=== PATIENT | male | born 1940 | race Two or more races ===

== ENCOUNTER 2016-06-03 19:18 | Inpatient (IN) | payer OTHER, MEDICARE ==
[~2016-06-03] VITALS: Ht 165.1 cm; Wt 92.1 kg
[2016-06-03] MEDS ORDERED: ALBUTEROL FS 2.5 MG/3 ML VIAL.NEB NEB ONE (19:30)
[2016-06-03] MEDS ORDERED: AZITHROMYCIN 500 MG in IV D5W 250 ML IV ONE (19:30)
[2016-06-03] MEDS ORDERED: methylPREDNISolone SOD SUCC 125 MG/2ML VIAL IV ONE (19:30)
[2016-06-03] MEDS ORDERED: CEFTRIAXONE 1GM BAG (ER ONLY) 1 GM/50 ML PIGGYBACK IV ONE (19:30)
[2016-06-03] MEDS ORDERED: IPRATROPIUM NEB FS 0.5 MG/2.5 ML AMPUL.NEB NEB ONE (19:30)
[2016-06-03] MEDS ORDERED: methylPREDNISolone SOD SUCC 125 MG/2ML VIAL ONE ×2 (19:34→23:53)
[2016-06-03] MEDS ORDERED: CEFTRIAXONE 1GM BAG (ER ONLY) 50 ML IV ONE (19:34)
[2016-06-03] MEDS ORDERED: IV SET PRIMARY 1 EA INFUS.SET MC ONE (19:34)
[2016-06-03] MEDS ORDERED: IPRATROPIUM NEB FS 0.5 MG/2.5 ML AMPUL.NEB ONE (19:38)
[2016-06-03] MEDS ORDERED: ALBUTEROL FS 2.5 MG/3 ML VIAL.NEB ONE (19:38)
[2016-06-03 19:42] LABS: BASOPHILS # (AUTO) 0.1 /CMM (0.0-0.2); BASOPHILS % (AUTO) 1.2 % (0.0-2.0); DIFF TOTAL % 100 %; EOSINOPHILS # (AUTO) 0.2 /CMM (0.0-0.7); EOSINOPHILS % (AUTO) 2.8 % (0.0-6.0); HEMATOCRIT 42 % (39-51); HEMOGLOBIN 13.8 g/dL (13.5-17.5); LYMPHOCYTES # (AUTO) 2.5 /CMM (0.8-4.8); LYMPHOCYTES % (AUTO) 29.9 % (20.0-44.0); MEAN CORPUSCULAR HEMOGLOBIN 31 PG (26.0-33.0); MEAN CORPUSCULAR HGB CONC 33 g/dl (31.0-36.0); MEAN CORPUSCULAR VOLUME 93 fL (80-96); MONOCYTES # (AUTO) 0.8 /CMM (0.1-1.30); MONOCYTES % (AUTO) 9.5 % (2.0-12.0); NEUTROPHILS # (AUTO) 4.9 /CMM (1.8-8.9); NEUTROPHILS % (AUTO) 56.6 % (43.0-81.0); PLATELET COUNT (AUTO) 313 /CMM (150-450); RED BLOOD CELL COUNT(AUTO) 4.51 MIL/uL (4.5-6.0); WHITE BLOOD COUNT (AUTO) 8.5 K/uL (4.3-11.0)
[2016-06-03 19:54] LABS: ANION GAP 16 (5-14); CALCIUM, SERUM 9.3 mg/dL (8.5-10.1); CARBON DIOXIDE 25 mmol/L (21-32); CHLORIDE 104 mmol/L (98-107); CREATININE 1.7 mg/dL (0.6-1.3); GLUCOSE 158 mg/dL (74-106); POTASSIUM 4.8 mmol/L (3.5-5.1); SODIUM SERUM 140 mmol/L (136-145); UREA NITROGEN, BLOOD 15 mg/dL (7-18)
[2016-06-03 20:13] LABS: ALANINE AMINOTRANSFERASE 36 U/L (12-78); ALBUMIN 3.8 g/dL (3.4-5.0); ASPARTATE AMINOTRANSFERASE 29 U/L (15-37); BILIRUBIN,DIRECT 0.1 mg/dL (0.0-0.2); BILIRUBIN,TOTAL 0.4 mg/dL (0.2-1.0); INDIRECT BILIRUBIN 0.3 mg/dL (0.0-1.1); TOTAL PROTEIN, SERUM 7.5 g/dL (6.4-8.2)
[2016-06-03] MEDS ORDERED: IV D5W 250 ML IV ONE ×2 (20:18→23:54)
[2016-06-03] MEDS ORDERED: IV SET PRIMARY PUMP SET 1 EA INFUS.SET MC ONE ×2 (20:18→23:42)
[2016-06-03] MEDS ORDERED: AZITHROMYCIN 500 MG VIAL ONE (20:18)
[2016-06-03 20:19] LABS: LACTIC ACID 2.2 mmol/L (0.4-2.0); TROPONIN I 0.047 ng/mL (0.00-0.056)
[2016-06-03 20:37] LABS: *LACTIC ACID REFLEX FLAG YES
[2016-06-03] MEDS: IPRATROPIUM NEB FS 0.5 MG/2.5 ML AMPUL.NEB NEB SCH (22:30)
[2016-06-03] MEDS ORDERED: ONDANSETRON HCL/PF 4 MG/2 ML VIAL IVP PRN (22:30)
[2016-06-03] MEDS ORDERED: LORAZEPAM INJ 2 MG/ML VIAL IVP PRN (22:30)
[2016-06-03] MEDS ORDERED: IV NS 0.9% 1,000 ML BAG IV ONE (22:30)
[2016-06-03] MEDS ORDERED: VANCOMYCIN 1 GM in IV D5W 250 ML IV ONE (22:30)
[2016-06-03] MEDS ORDERED: MORPHINE SULFATE INJ 2 MG/ML DISP.SYRIN IV PRN (22:30)
[2016-06-03] MEDS: ALBUTEROL FS 2.5 MG/0.5 ML VIAL.NEB NEB SCH (22:30)
[2016-06-03] MEDS ORDERED: ACETAMINOPHEN 325 MG TABLET PO PRN ×2 (22:30)
[2016-06-03 23:30] VITALS: BP 120/71
[2016-06-03] MEDS ORDERED: IV NS 0.9% 1,000 ML ONE (23:42)
[2016-06-03] MEDS ORDERED: VANCOMYCIN 1 GM VIAL ONE (23:53)
[2016-06-04 00:01] LABS: ALBUMIN 3.7 g/dL (3.4-5.0); BILIRUBIN,DIRECT 0.1 mg/dL (0.0-0.2); BILIRUBIN,TOTAL 0.3 mg/dL (0.2-1.0); INDIRECT BILIRUBIN 0.2 mg/dL (0.0-1.1); TOTAL PROTEIN, SERUM 7.5 g/dL (6.4-8.2)
[2016-06-04] MEDS ORDERED: ASPI81TA2 PO (00:20)
[2016-06-04] MEDS ORDERED: AMIO100T4 PO (00:20)
[2016-06-04] MEDS ORDERED: METO1TAB38 PO (00:20)
[2016-06-04] MEDS ORDERED: LOSA25TA13 PO (00:20)
[2016-06-04] MEDS ORDERED: FURO-145 PO (00:20)
[2016-06-04] MEDS ORDERED: GUAIFENESIN LA 600 MG TABLET.SA PO ONE (00:32)
[2016-06-04] MEDS: GUAIFENESIN LA 600 MG TABLET.SA PO SCH ×3 (00:39→21:28)
[2016-06-04] MEDS: methylPREDNISolone SOD SUCC 125 MG/2ML VIAL IV SCH ×4 (01:08→17:36)
[2016-06-04] MEDS ORDERED: PIPERACILLIN /TAZOBACTAM 3.375 G VIAL IV ONE ×2 (01:14→05:45)
[2016-06-04] MEDS ORDERED: IV D5W 50 ML IV ONE ×2 (01:14→05:46)
[2016-06-04] MEDS ORDERED: SECONDARY IV SET 1 EA INFUS.SET MC ONE (01:27)
[2016-06-04 04:03] VITALS: BP 108/55
[2016-06-04] MEDS: PIPERACILLIN /TAZOBACTAM 3.375 G in IV D5W 50 ML IV SCH ×4 (05:58→12:28)
[2016-06-04 07:05] VITALS: BP 120/62
[2016-06-04 07:32] LABS: BASOPHILS % (AUTO) 0.1 % (0.0-2.0); DIFF TOTAL % 100 %; HEMATOCRIT 39 % (39-51); HEMOGLOBIN 13.1 g/dL (13.5-17.5); LYMPHOCYTES # (AUTO) 0.8 /CMM (0.8-4.8); LYMPHOCYTES % (AUTO) 7.5 % (20.0-44.0); MEAN CORPUSCULAR HEMOGLOBIN 32 PG (26.0-33.0); MEAN CORPUSCULAR HGB CONC 33 g/dl (31.0-36.0); MEAN CORPUSCULAR VOLUME 94 fL (80-96); MONOCYTES % (AUTO) 0.3 % (2.0-12.0); NEUTROPHILS # (AUTO) 9.9 /CMM (1.8-8.9); NEUTROPHILS % (AUTO) 92.1 % (43.0-81.0); PLATELET COUNT (AUTO) 289 /CMM (150-450); RED BLOOD CELL COUNT(AUTO) 4.17 MIL/uL (4.5-6.0); WHITE BLOOD COUNT (AUTO) 10.7 K/uL (4.3-11.0)
[2016-06-04 08:00] VITALS: BP 124/62
[2016-06-04 08:04] LABS: ALBUMIN 3.4 g/dL (3.4-5.0); BILIRUBIN,TOTAL 0.5 mg/dL (0.2-1.0); CALCIUM, SERUM 8.8 mg/dL (8.5-10.1); PHOSPHORUS 2.4 mg/dL (2.5-4.9); POTASSIUM 5.5 mmol/L (3.5-5.1)
[2016-06-04] MEDS: PANTOPRAZOLE 40 MG TABLET.DR PO SCH (09:13)
[2016-06-04] MEDS: ALBUTEROL FS 2.5 MG/0.5 ML VIAL.NEB NEB SCH ×3 (09:17→19:14)
[2016-06-04] MEDS: IPRATROPIUM NEB FS 0.5 MG/2.5 ML AMPUL.NEB NEB SCH ×3 (09:18→19:15)
[2016-06-04] MEDS ORDERED: FEE PK DOSING 1 MIN EA MC ONE (09:42)
[2016-06-04] MEDS ORDERED: SODIUM POLYSTYRENE SULFONATE 15 G/60 ML BOTTLE PO ONE (12:00)
[2016-06-04] MEDS ORDERED: BUMETANIDE INJ 4 MG in IV NS 0.9% 24 ML IV ONE (15:00)
[2016-06-04 16:00] VITALS: BP 122/68
[2016-06-04] MEDS ORDERED: K PHOS NEUTRAL 250 MG TABLET PO ONE (16:00)
[2016-06-04] MEDS ORDERED: VANCOMYCIN 1 GM in IV D5W 250 ML IV SCH (18:00)
[2016-06-04 20:00] VITALS: BP 129/67
[2016-06-05] MEDS: IPRATROPIUM NEB FS 0.5 MG/2.5 ML AMPUL.NEB NEB SCH ×4 (01:13→20:33)
[2016-06-05] MEDS: ALBUTEROL FS 2.5 MG/0.5 ML VIAL.NEB NEB SCH ×4 (01:13→20:33)
[2016-06-05 06:50] LABS: BASOPHILS % (AUTO) 0.1 % (0.0-2.0); DIFF TOTAL % 100 %; HEMATOCRIT 35 % (39-51); HEMOGLOBIN 11.6 g/dL (13.5-17.5); LYMPHOCYTES % (AUTO) 5.5 % (20.0-44.0); MEAN CORPUSCULAR HEMOGLOBIN 31 PG (26.0-33.0); MEAN CORPUSCULAR HGB CONC 33 g/dl (31.0-36.0); MEAN CORPUSCULAR VOLUME 94 fL (80-96); MONOCYTES # (AUTO) 0.7 /CMM (0.1-1.30); MONOCYTES % (AUTO) 3.6 % (2.0-12.0); NEUTROPHILS # (AUTO) 16.7 /CMM (1.8-8.9); NEUTROPHILS % (AUTO) 90.8 % (43.0-81.0); PLATELET COUNT (AUTO) 298 /CMM (150-450); RED BLOOD CELL COUNT(AUTO) 3.71 MIL/uL (4.5-6.0); WHITE BLOOD COUNT (AUTO) 18.4 K/uL (4.3-11.0)
[2016-06-05 06:55] LABS: CALCIUM, SERUM 8.6 mg/dL (8.5-10.1); CREATININE 1.8 mg/dL (0.6-1.3); PHOSPHORUS 4.1 mg/dL (2.5-4.9); POTASSIUM 4.5 mmol/L (3.5-5.1)
[2016-06-05 07:28] LABS: CREATINE KINASE MB 2.9 ng/mL (0-3.6)
[2016-06-05 07:35] LABS: LACTIC ACID 2.7 mmol/L (0.4-2.0)
[2016-06-05 07:36] LABS: *LACTIC ACID REFLEX FLAG YES
[2016-06-05 08:00] VITALS: BP_SYST 117; BP_SYST 120; BP_DIAS 70; BP_DIAS 72
[2016-06-05] MEDS: methylPREDNISolone SOD SUCC 125 MG/2ML VIAL IV SCH ×3 (08:09→16:16)
[2016-06-05] MEDS: PANTOPRAZOLE 40 MG TABLET.DR PO SCH (08:10)
[2016-06-05] MEDS: GUAIFENESIN LA 600 MG TABLET.SA PO SCH (08:10)
[2016-06-05] MEDS ORDERED: BUMETANIDE INJ 4 MG in IV NS 0.9% 24 ML IV ONE (11:30)
[2016-06-05] MEDS ORDERED: SECONDARY IV SET 1 EA INFUS.SET MC ONE (11:43)
[2016-06-05] MEDS ORDERED: DEXTROSE 50%-WATER 50 ML DISP.SYRIN IV PRN (13:30)
[2016-06-05 16:00] VITALS: BP 113/55
[2016-06-05] MEDS: BLOOD SUGAR DIAGNOSTIC 1 EACH STRIP IN SCH ×2 (16:21→22:00)
[2016-06-05] MEDS: INSULIN REGULAR, HUMAN 100 UNIT/ML 3 ML VIAL SQ PRN ×2 (17:52→22:04)
[2016-06-05 20:00] VITALS: BP 130/82
[2016-06-05 20:01] VITALS: BP 130/82
[2016-06-05] MEDS: MUPIROCIN OINT 2% 22 GM TUBE SCH (21:55)
[2016-06-06] MEDS: INSULIN REGULAR, HUMAN 100 UNIT/ML 3 ML VIAL SQ PRN ×4 (00:13→22:52)
[2016-06-06] MEDS: ALBUTEROL FS 2.5 MG/0.5 ML VIAL.NEB NEB SCH ×4 (02:21→19:30)
[2016-06-06] MEDS: IPRATROPIUM NEB FS 0.5 MG/2.5 ML AMPUL.NEB NEB SCH ×4 (02:22→19:30)
[2016-06-06] MEDS: BLOOD SUGAR DIAGNOSTIC 1 EACH STRIP IN SCH ×4 (07:02→22:51)
[2016-06-06 07:10] LABS: DIFF TOTAL % 100 %; HEMATOCRIT 35 % (39-51); HEMOGLOBIN 11.6 g/dL (13.5-17.5); LYMPHOCYTES # (AUTO) 0.8 /CMM (0.8-4.8); LYMPHOCYTES % (AUTO) 4.9 % (20.0-44.0); MEAN CORPUSCULAR HEMOGLOBIN 31 PG (26.0-33.0); MEAN CORPUSCULAR HGB CONC 34 g/dl (31.0-36.0); MEAN CORPUSCULAR VOLUME 94 fL (80-96); MONOCYTES # (AUTO) 0.6 /CMM (0.1-1.30); MONOCYTES % (AUTO) 3.9 % (2.0-12.0); NEUTROPHILS # (AUTO) 14.9 /CMM (1.8-8.9); NEUTROPHILS % (AUTO) 91.2 % (43.0-81.0); PLATELET COUNT (AUTO) 286 /CMM (150-450); RED BLOOD CELL COUNT(AUTO) 3.69 MIL/uL (4.5-6.0); WHITE BLOOD COUNT (AUTO) 16.4 K/uL (4.3-11.0)
[2016-06-06 07:34] LABS: CALCIUM, SERUM 8.8 mg/dL (8.5-10.1); CREATININE 1.6 mg/dL (0.6-1.3); POTASSIUM 4.1 mmol/L (3.5-5.1)
[2016-06-06 08:00] VITALS: BP 102/59
[2016-06-06 08:44] VITALS: BP 102/59
[2016-06-06] MEDS: MUPIROCIN OINT 2% 22 GM TUBE SCH ×2 (09:00→22:51)
[2016-06-06] MEDS: PANTOPRAZOLE 40 MG TABLET.DR PO SCH (10:01)
[2016-06-06] MEDS: methylPREDNISolone SOD SUCC 125 MG/2ML VIAL IV SCH ×3 (10:01→17:23)
[2016-06-06 12:14] LABS: PTH, INTACT 64 pg/mL (15-65)
[2016-06-06 14:24] LABS: *SPE ALBUMIN 3.4 g/dL (2.9-4.4)
[2016-06-06] MEDS ORDERED: FLUT1DIS3 INH (14:45)
[2016-06-06] MEDS ORDERED: PRED20TA PO (14:45)
[2016-06-06] MEDS ORDERED: LEVO750T21 PO (14:45)
[2016-06-06 16:00] VITALS: BP_SYST 119; BP_SYST 150; BP_DIAS 67
[2016-06-06 20:15] VITALS: BP 119/61
[2016-06-06 23:15] VITALS: BP 142/83
== END 2016-06-06 23:50 | disposition home or self-care (01) | DRG 194 ==
LOC: ER 19:19 → TELE 22:15 → MED 06-04 08:27
PROVIDERS: ADMIT Internal Medicine; ATTEND Internal Medicine
DX: I13.0 Hypertensive heart and chronic kidney disease with heart failure and stage 1 through stage 4 chronic kidney disease, or unspecified chronic kidney disease (principal); N17.0 Acute kidney failure with tubular necrosis; D68.59 Other primary thrombophilia; E11.22 Type 2 diabetes mellitus with diabetic chronic kidney disease; J44.1 Chronic obstructive pulmonary disease with (acute) exacerbation; E87.5 Hyperkalemia; I48.91 Unspecified atrial fibrillation; M54.12 Radiculopathy, cervical region; I50.31 Acute diastolic (congestive) heart failure; E66.9 Obesity, unspecified; N18.9 Chronic kidney disease, unspecified; I25.10 Atherosclerotic heart disease of native coronary artery without angina pectoris; Z95.0 Presence of cardiac pacemaker; Z87.891 Personal history of nicotine dependence; Z90.49 Acquired absence of other specified parts of digestive tract; Z68.33 Body mass index [BMI] 33.0-33.9, adult
CPT/HCPCS: 36415; 70490-TC; 71010-TC; 80048-TC; 80053-TC; 80076-TC; 82550-TC; 82553-TC; 82945-TC; 82962-TC; 83605-TC; 83735-TC; 83880; 83970; 84100-TC; 84155; 84165; 84484-TC; 85025-TC; 87040-TC; 87081-TC; 87400; 93307-TC; 94799-TC; 97001-TC; A4606; J0456; J0696; J1815; J2543; J2930; J3370; J3490; J7030; J7060; Z7610